=== PATIENT | female | born 1995 | race Caucasian/White ===

== ENCOUNTER 2017-08-15 22:44 | Emergency (ER) | payer SELFPAY ==
[~2017-08-15] VITALS: Ht 167.6 cm; Wt 54.5 kg
[2017-08-15 23:58] LABS: UA SPECIFIC GRAVITY 1.015 (1.005-1.035); microscopic required? YES; urine erythrocyte TRACE (NEGATIVE)
[2017-08-16 00:04] LABS: BASOPHIL % 0.4 % (0-2); PLATELET COUNT 232 x10^3mcL (130-400)
[2017-08-16 03:13] VITALS: BP 113/72
== END 2017-08-16 03:13 | disposition home or self-care (01) ==
LOC: ED 22:44
PROVIDERS: Emergency Medicine
DX: O23.41 Unspecified infection of urinary tract in pregnancy, first trimester (principal); B37.9 Candidiasis, unspecified; Z3A.01 Less than 8 weeks gestation of pregnancy
CPT/HCPCS: 36415